=== PATIENT | female | born 1960 | race Caucasian/White ===

== ENCOUNTER 2019-10-22 07:41 | Emergency (ER) | payer MEDICAID ==
[~2019-10-22] VITALS: Ht 154.9 cm; Wt 72.6 kg
[2019-10-22 07:48] VITALS: Ht 154.9 cm; Wt 72.6 kg
[2019-10-22 09:32] VITALS: BP 112/65
== END 2019-10-22 09:13 | disposition home or self-care (01) ==
LOC: ED 07:41
DX: S82.142A Displaced bicondylar fracture of left tibia, initial encounter for closed fracture (principal); X58.XXXA Exposure to other specified factors, initial encounter; Y93.89 Activity, other specified; Y92.89 Other specified places as the place of occurrence of the external cause; Y99.8 Other external cause status